=== PATIENT | female | born 2000 | race Caucasian/White ===

== ENCOUNTER 2019-08-27 13:27 | Emergency (ER) | payer OTHER ==
[~2019-08-27] VITALS: Ht 149.9 cm; Wt 81.7 kg
[2019-08-27 14:40] LABS: ABSOLUTE EOSINOPHILS 0.1 thou/uL (0.0-0.7); ABSOLUTE LYMPHOCYTES 2.6 thou/uL (0.8-5.3); ABSOLUTE MONOCYTES 0.4 thou/uL (0.0-1.2); ABSOLUTE NEUTROPHILS 4.1 thou/uL (1.6-8.1); BASOPHILS 0.4 %; EOSINOPHILS 1.5 %; HEMATOCRIT 44.8 % (37.0-47.0); HEMOGLOBIN 15.7 gm/dL (12.0-15.0); LYMPHOCYTES 36.6 %; MCH 31.1 pg (26.0-34.0); MCV 88.7 fL (80.0-100.0); MPV 8.8 fl. (7.2-11.1); NUCLEATED RBCS 0 /100WBC; PLATELET COUNT* 269 thou/uL (150-400); POLYS 56.5 %; RBC 5.06 mil/uL (4.20-5.00); RDW-CV 12.5 % (10.5-14.5); WBC 7.2 thou/uL (4.0-11.0)
[2019-08-27 14:55] LABS: PROTIME 10.4 Seconds (9.20-11.50)
[2019-08-27 15:32] LABS: CALCIUM 8.7 mg/dL (8.5-10.1); CREATININE 1.1 mg/dL (0.6-1.3); POTASSIUM 3.8 mmol/L (3.5-5.1)
[2019-08-27 15:37] LABS: TOTAL BILIRUBIN 0.3 mg/dL (<0.1-1.0); TOTAL PROTEIN 7.9 g/dL (6.4-8.2)
[2019-08-27 16:06] LABS: URINE BILIRUBIN NEGATIVE (Negative); URINE BLOOD NEGATIVE (Negative); URINE CLARITY CLEAR; URINE COLOR YELLOW; URINE GLUCOSE-RANDOM NEGATIVE (Negative); URINE KETONES NEGATIVE (Negative); URINE LEUKOCYTES-REFLEX NEGATIVE (Negative); URINE NITRITE-REFLEX NEGATIVE (Negative); URINE PROTEIN NEGATIVE (Negative); URINE UROBILINOGEN 0.2 E.U./dl (0.2-1.0)
[2019-08-27 16:16] LABS: AMP/METHAMP Negative (Negative); BARBITURATES Negative (Negative); BENZODIAZEPINES Negative (Negative); COCAINE Negative (Negative); METHADONE Negative (Negative); OPIATES Negative (Negative); PCP Negative (Negative); THC Negative (Negative)
[2019-08-27 16:55] VITALS: BP 114/74
--- NOTE | 2019-08-28 19:18 | EKG ---
[place] [address] ELECTROCARDIOGRAM REPORT Name: MICKI VILLALBA Room: [facility]#: [id number] Admission: 08/27/19 Attend Phys: Discharge: 08/27/19 Date of : [birth year] Date of Service: 08/27/19 1444 Report #: [id number] THIS REPORT FOR: //name// [facility] ED Test Date: 2019-08-27 Test Time: 14:44:52 Pat Name: MICKI VILLALBA Department: Room: Gender: F Hardware Developer: [facility] : 2000 Requested By: Chuy Duffy Order Number: [id number] MD: Velasquez Pappas Measurements Intervals [place] Rate: 107 P: 28 AR: 116 QRS: 0 QRSD: 89 T: 1 QT: 361 QTc: 482 Interpretive Statements Sinus tachycardia Borderline T abnormalities, anterior leads No previous ECG available for comparison Electronically Signed On 08-28-2019 17:39:11 CDT by Velasquez Pappas [email or web address] <ELECTRONICALLY SIGNED> By: Velasquez Pappas MD, [facility] 08/28/19 1739 1444 1444 Velasquez Pappas MD, FACC /EPI
== END 2019-08-27 16:56 | disposition home or self-care (01) ==
LOC: M.ERS 13:27
PROVIDERS: Emergency Medicine Emergency Medical Services
DX: R51 Headache (principal); R20.0 Anesthesia of skin; R42 Dizziness and giddiness